=== PATIENT | female | born 2000 | race Caucasian/White ===

== ENCOUNTER 2021-10-18 00:44 | Emergency (ER) | payer OTHER, SELFPAY ==
[2021-10-18 01:23] LABS: #Basophils 0.2 thou/uL (0.0-0.2); #Eosinphils 0.5 thou/uL (0.0-0.7); #Lymphocytes 5.6 thou/uL (1.20-3.40); #Monocytes 1.1 thou/uL (0.11-0.59); #Neutrophils 9.3 thou/uL (1.40-6.50); %Basophils 1.1 % (0.0-1.0); %Eosinophils 3.1 % (0.0-10.0); %Lymphocytes 33.5 % (21.0-51.0); %Monocytes 6.7 % (0.0-10.0); %Neutrophils 55.7 % (42.0-75.0); Hemoglobin 12.4 g/dL (12.0-16.0); Mean Corpuscular HGB CONC 34.5 g/dL (32.0-36.0); Mean Corpuscular Hemoglobin 29.6 pg (27.0-31.0); Mean Corpuscular Volume 85.7 fL (78.0-98.0); Mean Platelet Volume 6.9 fL (7.4-10.4); Platelet Count 490 thou/uL (130-400); RBC Distribution Width 11.5 % (11.5-14.5); Red Blood Cell (RBC) Count 4.18 mill/uL (4.20-5.40); White Blood Cell (WBC) Count 16.7 thou/uL (4.8-10.8)
[2021-10-18 01:36] LABS: Bacteria/HPF 1+ HPF (None Seen); Bilirubin Negative (Negative); Blood, Urine 1+ (Negative); Calcium Oxalate Crystals Rare HPF (None Seen); Clarity Turbid (Clear); Glucose, Urine (Dipstick) Normal (Negative); Ketone, Urine Trace mg/dL (Negative); Leukocyte 500 Leu/uL (Negative); Nitrite Negative (Negative); Pregnancy Test - Urine (BHCG) Negative (Negative); Protein, Urine (Dipstick) 20 mg/dL (Neg-Trace); RBC/HPF 21-50 HPF (0-3); Specific Gravity, Urine 1.028 (1.002-1.036); WBC/HPF Greater than 50 HPF (0-3)
[2021-10-18 01:37] LABS: Pregu Control Background? CLEAR/WHITE (CLR/WHITE); Pregu Control Bar Appear? YES (CONTROL BAR); Specific Gravity 1.028 (1.002-1.036)
[2021-10-18 01:48] LABS: ALT (SGPT) 15 U/L (8-55); AST (SGOT) 16 U/L (5-34); Albumin 3.7 g/dL (3.5-5.0); Alkaline Phosphatase 68 U/L (40-110); Anion Gap 13 mmol/L (10-20); BUN (Urea Nitrogen) 12 mg/dL (7.0-18.7); Bilirubin, Total Less than 0.2 mg/dL (0.2-1.2); Calc. Creatinine Clearance 0 mL/min (70-130); Calcium 9.8 mg/dL (7.8-10.44); Carbon Dioxide 25 mmol/L (22-29); Chloride 106 mmol/L (98-107); Globulin 3.8 g/dL (2.4-3.5); Glucose 110 mg/dL (70-105); Potassium 3.6 mmol/L (3.5-5.1); Protein, Total 7.5 g/dL (6.0-8.3); Sodium 140 mmol/L (136-145)
[2021-10-18 02:38] LABS: PTT 28.3 sec (22.9-36.1); Prothrombin Time 13.6 sec (12.0-14.7)
[2021-10-18] MEDS ORDERED: Lidocaine Viscous Sol 2% 15 ml UD Cup ONE (02:39)
[2021-10-18] MEDS ORDERED: Mag-Al 1200 mg/1200 mg/30 ML UDCUP ONE (02:39)
== END 2021-10-18 04:46 | disposition home or self-care (01) ==
LOC: ERS 00:44
DX: K80.20 Calculus of gallbladder without cholecystitis without obstruction (principal); N39.0 Urinary tract infection, site not specified
CPT/HCPCS: 36415; 76705; 80053; 81003; 81015; 81025; 83605; 85025; 85610; 85730; 87040; 87086; 93005

== ENCOUNTER 2022-11-09 06:28 | Emergency (ER) | payer MEDICAID, SELFPAY ==
[2022-11-09 07:06] LABS: #Basophils 0.1 thou/uL (0.0-0.2); #Eosinphils 0.3 thou/uL (0.0-0.7); #Lymphocytes 3.7 thou/uL (1.20-3.40); #Monocytes 0.6 thou/uL (0.11-0.59); #Neutrophils 3.6 thou/uL (1.40-6.50); %Basophils 0.6 % (0.0-1.0); %Eosinophils 4.1 % (0.0-10.0); %Monocytes 7.1 % (0.0-10.0); %Neutrophils 43.2 % (42.0-75.0); Hemoglobin 13.1 g/dL (12.0-16.0); Mean Corpuscular HGB CONC 33.3 g/dL (32.0-36.0); Mean Corpuscular Hemoglobin 28.4 pg (27.0-31.0); Mean Corpuscular Volume 85.1 fl (78.0-98.0); Mean Platelet Volume 7.9 fL (7.4-10.4); Platelet Count 322 10x3/uL (130-400); RBC Distribution Width 11.8 % (11.5-14.5); Red Blood Cell (RBC) Count 4.61 mill/uL (4.20-5.40); White Blood Cell (WBC) Count 8.2 10x3/uL (4.8-10.8)
[2022-11-09] MEDS ORDERED: Morphine 4 MG/ML VIAL ONE (07:11)
[2022-11-09] MEDS ORDERED: Ondansetron ODT 4 MG TAB ONE (07:11)
[2022-11-09 07:12] LABS: BHCG - Serum Negative (NEGATIVE); Pregs Control Background? CLEAR/WHITE (CLR/WHITE); Pregs Control Bar Appear? YES (CONTROL BAR)
[2022-11-09 07:26] LABS: ALT (SGPT) 31 U/L (8-55); AST (SGOT) 32 U/L (5-34); Albumin 4.2 g/dL (3.5-5.0); Alkaline Phosphatase 100 U/L (40-110); Anion Gap 12 mmol/L (10-20); BUN (Urea Nitrogen) 15 mg/dL (7.0-18.7); Bilirubin, Total 0.3 mg/dL (0.2-1.2); Calc. Creatinine Clearance 0 mL/min (70-130); Calcium 9.3 mg/dL (7.8-10.44); Carbon Dioxide 24 mmol/L (22-29); Chloride 106 mmol/L (98-107); Estimated GFR 109; Globulin 3.2 g/dL (2.4-3.5); Glucose 102 mg/dL (70-105); Lipase 28 U/L (8-78); Potassium 3.8 mmol/L (3.5-5.1); Protein, Total 7.4 g/dL (6.0-8.3); Sodium 138 mmol/L (136-145)
[2022-11-09 08:10] LABS: Bilirubin Negative (Negative); Blood, Urine Negative (Negative); Clarity Clear (Clear); Glucose, Urine (Dipstick) Normal (Negative); Ketone, Urine Negative (Negative); Leukocyte 75 Leu/uL (Negative); Nitrite Negative (Negative); Protein, Urine (Dipstick) 20 mg/dL (Neg-Trace); RBC/HPF 0-3 HPF (0-3); Urobilinogen Normal mg/dL (Less than 2); pH, Urine 6.5 (5.0-9.0)
[2022-11-09 08:11] LABS: Bacteria/HPF Rare-Few HPF (None Seen); Transitional Epithelial 0-3 HPF (None Seen)
== END 2022-11-09 08:43 | disposition home or self-care (01) ==
LOC: ERS 06:28
DX: R10.814 Left lower quadrant abdominal tenderness (principal); R10.813 Right lower quadrant abdominal tenderness
CPT/HCPCS: 36415; 80053; 81003; 81015; 83690; 84703; 85025; 87086; 96374; J2270; Q0162

== ENCOUNTER 2022-11-09 23:37 | Inpatient (IN) | payer SELFPAY ==
[2022-11-10 00:32] LABS: #Eosinphils 0.1 thou/uL (0.0-0.7); #Lymphocytes 2.1 thou/uL (1.20-3.40); #Monocytes 0.7 thou/uL (0.11-0.59); #Neutrophils 5.5 thou/uL (1.40-6.50); %Basophils 0.3 % (0.0-1.0); %Eosinophils 0.7 % (0.0-10.0); %Lymphocytes 25.4 % (21.0-51.0); %Monocytes 8.7 % (0.0-10.0); Hemoglobin 13.7 g/dL (12.0-16.0); Mean Corpuscular HGB CONC 32.9 g/dL (32.0-36.0); Mean Corpuscular Hemoglobin 27.9 pg (27.0-31.0); Mean Platelet Volume 7.9 fL (7.4-10.4); Platelet Count 368 10x3/uL (130-400); RBC Distribution Width 11.9 % (11.5-14.5); Red Blood Cell (RBC) Count 4.92 mill/uL (4.20-5.40); White Blood Cell (WBC) Count 8.4 10x3/uL (4.8-10.8)
[2022-11-10 00:37] LABS: BHCG - Serum Negative (NEGATIVE); Pregs Control Background? CLEAR/WHITE (CLR/WHITE); Pregs Control Bar Appear? YES (CONTROL BAR)
[2022-11-10 00:47] LABS: Bacteria/HPF None Seen HPF (None Seen); Bilirubin 1+ (Negative); Blood, Urine Negative (Negative); Clarity Clear (Clear); Glucose, Urine (Dipstick) Normal (Negative); Ketone, Urine Negative (Negative); Leukocyte Negative Leu/uL (Negative); Nitrite Negative (Negative); Protein, Urine (Dipstick) 30 mg/dL (Neg-Trace); RBC/HPF 0-3 HPF (0-3); Specific Gravity, Urine 1.028 (1.002-1.036); Squamous Epithelial 0-3 HPF (0-3); WBC/HPF 0-3 HPF (0-3); pH, Urine 6.5 (5.0-9.0)
[2022-11-10 00:58] LABS: ALT (SGPT) 725 U/L (8-55); AST (SGOT) 895 U/L (5-34); Albumin 4.5 g/dL (3.5-5.0); Alkaline Phosphatase 158 U/L (40-110); Anion Gap 13 mmol/L (10-20); BUN (Urea Nitrogen) 10 mg/dL (7.0-18.7); Bilirubin, Total 2.1 mg/dL (0.2-1.2); Calc. Creatinine Clearance 0 mL/min (70-130); Carbon Dioxide 24 mmol/L (22-29); Chloride 103 mmol/L (98-107); Estimated GFR 125; Globulin 3.6 g/dL (2.4-3.5); Glucose 108 mg/dL (70-105); Lipase 18 U/L (8-78); Potassium 4.2 mmol/L (3.5-5.1); Protein, Total 8.1 g/dL (6.0-8.3); Sodium 136 mmol/L (136-145)
[2022-11-10] MEDS ORDERED: Ondansetron PF 4 MG/2 ML Vial ONE ×2 (03:12→13:16)
[2022-11-10] MEDS ORDERED: Morphine 4 MG/ML VIAL ONE (03:12)
[2022-11-10] MEDS ORDERED: Piperacillin/Tazobactam 4.5 GM VIAL ONE (03:13)
[2022-11-10] MEDS ORDERED: Ondansetron PF 4 MG/2 ML Vial IVP PRN ×2 (03:51→16:44)
[2022-11-10] MEDS ORDERED: EPINEPHrine 1 MG/ML VIAL ONE ×2 (03:53→04:05)
[2022-11-10] MEDS ORDERED: Famotidine/PF 20 mg/2ml Vial ONE (03:57)
[2022-11-10] MEDS ORDERED: methylPREDNISolone Sod Succ/PF 125 MG/2 ML VIAL ONE (03:57)
[2022-11-10] MEDS ORDERED: diphenhydrAMINE 50 MG/ML VIAL ONE (03:57)
[2022-11-10] MEDS ORDERED: diphenhydrAMINE 25 MG CAP PO PRN (04:32)
[2022-11-10] MEDS: Sodium Chloride 0.9% 1,000 ML IV SCH ×2 (06:11→16:50)
[2022-11-10 08:00] VITALS: BMI 31.1
[2022-11-10 08:30] LABS: SARS-CoV-2 NAA Rapid Test Not Detected (NotDetected)
[2022-11-10] MEDS ORDERED: Famotidine 20 MG TAB ONE (08:58)
[2022-11-10] MEDS ORDERED: diphenhydrAMINE 25 MG CAP ONE (08:58)
[2022-11-10] MEDS ORDERED: Famotidine 20 MG TAB PO SCH (09:00)
[2022-11-10] MEDS ORDERED: fentaNYL PF 100 MCG/2 ML SYRINGE ONE ×3 (12:58→14:52)
[2022-11-10] MEDS ORDERED: Scopolamine 1.5 mg/72 hour Patch ONE (13:00)
[2022-11-10] MEDS ORDERED: Levofloxacin 500 mg/D5W 100 ml Premix Bag ONE (13:00)
[2022-11-10] MEDS ORDERED: Bupivacaine/Epinephrine 0.25% 30 ML VIAL ONE (13:00)
[2022-11-10] MEDS ORDERED: PROPOFOL 200 MG/20 ML VIAL ONE (13:16)
[2022-11-10] MEDS ORDERED: Glycopyrrolate 0.2 MG/ML 5 ML SYRINGE ONE (13:16)
[2022-11-10] MEDS ORDERED: Succinylcholine Chloride 100 MG/5 ML SYRINGE FS ONE (13:16)
[2022-11-10] MEDS ORDERED: Lidocaine 1% PF 5 ML VIAL ONE (13:16)
[2022-11-10] MEDS ORDERED: NEOSTIGMINE 3 MG/3 ML SYR 3 MG/3 ML SYRINGE ONE (13:16)
[2022-11-10] MEDS ORDERED: Dexamethasone 20 MG/5 ML VIAL ONE (13:16)
[2022-11-10] MEDS ORDERED: Rocuronium Bromide 10 MG/ML (10ML VIAL) ONE (13:16)
[2022-11-10] MEDS ORDERED: Iopamidol 15 ML ONE ×2 (13:47→14:11)
[2022-11-10] MEDS ORDERED: Ondansetron HCl/PF 4 MG/2 ML Vial IVP PRN (14:47)
[2022-11-10] MEDS ORDERED: Promethazine HCl 25 MG/ML VIAL IM PRN ×2 (14:47→16:44)
[2022-11-10] MEDS ORDERED: D5 1/2 NS w/20 mEq KCL 1,000 ML ONE (14:55)
[2022-11-10] MEDS ORDERED: Promethazine HCl 25 MG/ML VIAL ONE (14:59)
[2022-11-10] MEDS: D5 1/2 NS w/20 mEq KCL 1,000 ML IV SCH (15:40)
[2022-11-10] MEDS ORDERED: Scopolamine 1.5 mg/72 hour Patch TOP PRN (15:54)
[2022-11-10] MEDS ORDERED: HYDROcodone/Acetaminophen 7.5/325 mg Tablet PO PRN (16:44)
[2022-11-10] MEDS ORDERED: Dextrose 50% Abboject 50 ML SYRINGE SLOW IVP PRN (16:44)
[2022-11-10] MEDS ORDERED: Mag-Al 1200 mg/1200 mg/30 ML UDCUP PO PRN (16:44)
[2022-11-10] MEDS ORDERED: Ipratropium/Albuterol 3 ML NEB NEB PRN (16:44)
[2022-11-10] MEDS ORDERED: Calcium Carbonate 500 MG ChewTAB PO PRN (16:44)
[2022-11-10] MEDS ORDERED: Dextrose 5% in Water 1,000 ML IV PRN (16:44)
[2022-11-10] MEDS ORDERED: hydrALAZINE 20 MG/ML VIAL SLOW IVP PRN (16:44)
[2022-11-10] MEDS ORDERED: Morphine 4 MG/ML VIAL SLOW IVP PRN (16:44)
[2022-11-10] MEDS ORDERED: Fentanyl 100 MCG/2 ML VIAL SLOW IVP PRN (19:46)
[2022-11-10] MEDS: Famotidine 20 MG TAB PO SCH (20:50)
[2022-11-10] MEDS: Acetaminophen 325 MG TAB PO PRN (20:57)
[2022-11-10] MEDS: Famotidine/PF 20 mg/2ml Vial SLOW IVP SCH (20:59)
[2022-11-10] MEDS ORDERED: traMADol HCl 50 MG TAB PO PRN ×2 (23:23→23:24)
[2022-11-11] MEDS: Acetaminophen 325 MG TAB PO PRN (02:36)
[2022-11-11] MEDS: D5 1/2 NS w/20 mEq KCL 1,000 ML IV SCH (02:51)
[2022-11-11] MEDS: Famotidine 20 MG TAB PO SCH (08:21)
[2022-11-11] MEDS: Famotidine/PF 20 mg/2ml Vial SLOW IVP SCH (08:24)
[2022-11-11 10:33] VITALS: BP 112/73; TEMP 97.9
== END 2022-11-11 11:45 | disposition home or self-care (01) | DRG 418 ==
LOC: ERS 23:37 → ERHOLD 11-10 04:49 → SJJU 11-10 11:35
PROVIDERS: ADMIT Internal Medicine; ATTEND Internal Medicine
PROC: 0FT44ZZ Resection of Gallbladder, Percutaneous Endoscopic Approach (ICD-10-PCS; principal; 2022-11-10)
PROC: BF10YZZ Fluoroscopy of Bile Ducts using Other Contrast (ICD-10-PCS; 2022-11-10)
DX: K80.00 Calculus of gallbladder with acute cholecystitis without obstruction (principal); T78.2XXA Anaphylactic shock, unspecified, initial encounter; Z20.822 Contact with and (suspected) exposure to COVID-19; E28.2 Polycystic ovarian syndrome; Z88.0 Allergy status to penicillin
CPT/HCPCS: 36415; 47532; 76705; 80053; 81003; 83690; 84703; 85025; 87086; 88304; 93005; 96372; 96374; 96375; C1889; J0171; J1100; J1200; J1611; J1956; J2270; J2405; J2543; J2550; J2704; J2930; J3010; J3480; J7050; Q9967; S0028; U0002

== ENCOUNTER 2024-09-06 15:05 | Emergency (ER) | payer OTHER, SELFPAY | END 2024-09-06 17:38 | disposition home or self-care (01) | LOC: ERS 15:05 | DX: B34.9 Viral infection, unspecified (principal) | CPT/HCPCS: 87081; 87428; 87430; 99283 ==

== ENCOUNTER 2024-11-10 21:17 | Emergency (ER) | payer MEDICAID ==
[2024-11-10] MEDS ORDERED: Acetaminophen 500 MG TAB ONE (22:00)
[2024-11-10] MEDS ORDERED: diphenhydrAMINE 50 MG/ML VIAL ONE (22:00)
[2024-11-10] MEDS ORDERED: Ketorolac Tromethamine 30 MG (1 mL) VIAL ONE (22:00)
[2024-11-10 22:21] LABS: #Basophils 0.06 10x3/uL (0.0-0.2); %Basophils 0.5 % (0.0-1.0); %Eosinophils 3.1 % (0.0-10.0); %Lymphocytes 17.3 % (21.0-51.0); %Monocytes 6.8 % (0.0-10.0); %Neutrophils 71.9 % (42.0-75.0); Hematocrit 37.3 % (36.0-47.0); Hemoglobin 12.2 g/dL (12.0-16.0); Mean Corpuscular HGB CONC 32.7 g/dL (32.0-36.0); Mean Corpuscular Hemoglobin 27.2 pg (27.0-31.0); Mean Corpuscular Volume 83.1 fL (78.0-98.0); Mean Platelet Volume 10.1 fL (7.4-10.4); Platelet Count 410 10x3/uL (130-400); RBC Distribution Width 13.9 % (11.5-14.5); Red Blood Cell (RBC) Count 4.49 mill/uL (4.20-5.40)
[2024-11-10 22:45] LABS: ALT (SGPT) 51 U/L (8-55); AST (SGOT) 39 U/L (5-34); Albumin 3.2 g/dL (3.5-5.0); Alkaline Phosphatase 130 U/L (40-110); Anion Gap 12 mmol/L (10-20); BUN (Urea Nitrogen) 16 mg/dL (7.0-18.7); Bilirubin, Total 0.2 mg/dL (0.2-1.2); Calc. Creatinine Clearance 0 mL/min (70-130); Calcium 9.4 mg/dL (7.8-10.44); Carbon Dioxide 23 mmol/L (22-29); Chloride 107 mmol/L (98-107); Estimated GFR 130; Globulin 3.8 g/dL (2.4-3.5); Glucose 97 mg/dL (70-105); Sodium 138 mmol/L (136-145)
[2024-11-10 23:34] LABS: Bacteria/HPF None Seen HPF (None Seen); Bilirubin Negative (Negative); Blood, Urine Negative (Negative); CAUTI Indications for Culture Pelvic or flank pain; Clarity Clear (Clear); Glucose, Urine (Dipstick) Normal (Negative); Ketone, Urine Negative (Negative); Leukocyte Negative Leu/uL (Negative); Nitrite Negative (Negative); Protein, Urine (Dipstick) Negative (Neg-Trace); RBC/HPF None Seen HPF (0-3); Specific Gravity, Urine 1.016 (1.002-1.036); Squamous Epithelial 0-3 HPF (0-3); Urobilinogen Normal mg/dL (Less than 2); WBC/HPF 0-3 HPF (0-3)
[2024-11-10 23:35] LABS: Urine Culture Reflex No No
[2024-11-10 23:37] LABS: Troponin I Less than 0.010 ng/mL (< 0.028)
== END 2024-11-10 23:50 | disposition home or self-care (01) ==
LOC: ERS 21:17
DX: O99.893 Other specified diseases and conditions complicating puerperium (principal); R51.9 Headache, unspecified
CPT/HCPCS: 71045; 80053; 81001; 83880; 84484; 85025; 87081; 87430; 93005; 96361; 96374; 96375; J1200; J1885